=== PATIENT | male | born 1965 ===

== ENCOUNTER 2020-07-19 08:14 | Outpatient (REF) | payer BC, SELFPAY ==
[2020-07-19 11:28] LABS: MANUAL DIFF FLAG NO
[2020-07-19 11:38] LABS: Basophils Percent Auto 0.3 % (0-2); Eosinophils Absolute Auto 0.1 X10*3/uL (0.0-0.4); Eosinophils Percent Auto 0.9 % (0-4); Hematocrit 47.4 % (42-52); Hemoglobin 16.1 g/dl (14.0-18.0); Imm Gran Pct Auto 1.3 % (0.0-0.4); Lymphocytes Absolute Auto 1.6 X10*3/uL (1.2-4.9); Lymphocytes Percent Auto 20.3 % (20-40); Mean Corpuscular Hemoglobin 33.4 pg (27.0-33.0); Mean Corpuscular Volume 98.3 fL (80-98); Mean Platelet Volume 8.7 fL (9.4-12.4); Monocytes Absolute Auto 0.9 X10*3/uL (0.1-1.2); Monocytes Percent Auto 10.6 % (2-11); Neutrophils Absolute Auto 5.3 X10*3/uL (2.0-8.3); Neutrophils Percent Auto 66.6 % (45-73); Platelet Count 362 X10*3/uL (160-400); Red Blood Count 4.82 X10*6/uL (4.60-5.80)
[2020-07-19 12:04] LABS: Alanine Aminotransferase 24 U/L (0-40); Albumin Level 4.6 g/dL (3.5-5.0); Alkaline Phosphatase 89 U/L (39-117); Anion Gap 14 (12-20); Aspartate Amino Transferase 19 U/L (5-37); Bilirubin Total 0.6 mg/dL (0.0-1.0); Blood Urea Nitrogen 19 mg/dL (9-16); Calcium 9.3 mg/dL (8.4-10.2); Carbon Dioxide 26 mmol/L (22-29); Chloride 105 mmol/L (96-108); Cholesterol 184 mg/dL; Estimated Glomerular Filt Rate > 60; Glucose Fasting 78 mg/dL (60-99); HDL Cholesterol 46 mg/dL; LDL Cholesterol Calculated 112 mg/dl; Potassium 4.8 mmol/l (3.3-5.1); Sodium 140 mmol/L (135-145); Total Protein 7.3 g/dL (6.5-8.0); Triglycerides 133 mg/dL
== END 2020-07-19 08:15 | disposition home or self-care (01) ==
LOC: HO.HMGCLDS 08:14
PROVIDERS: PCP Internal Medicine; Visit Provider Internal Medicine
DX: I11.9 Hypertensive heart disease without heart failure (principal); I43 Cardiomyopathy in diseases classified elsewhere
CPT/HCPCS: 36415; 80053; 80061; 84443; 85025

== ENCOUNTER → 2020-08-09 14:44 | Outpatient (BNVA) | payer BC, SELFPAY | PROVIDERS: PCP Internal Medicine; Visit Provider Internal Medicine | DX: I42.8 Other cardiomyopathies (principal); I10 Essential (primary) hypertension; Z79.899 Other long term (current) drug therapy | CPT/HCPCS: 93005 ==

== ENCOUNTER 2020-08-24 09:56 | Outpatient (REF) | payer BC, SELFPAY | END 2020-08-24 09:57 | disposition home or self-care (01) | LOC: HO.LAB 09:56 | PROVIDERS: Visit Provider Internal Medicine | DX: Z20.828 Contact with and (suspected) exposure to other viral communicable diseases (principal) | CPT/HCPCS: C9803; U0003 ==

== ENCOUNTER 2020-10-18 15:17 | Outpatient (REF) | payer BC, SELFPAY ==
--- NOTE | 2020-10-18 15:21 | XR_ITS ---
EXAMINATION: THORACIC AND LUMBAR SPINE X-RAY CLINICAL INFORMATION: Back pain COMPARISON: None TECHNIQUE: 3 views of the thoracic spine and 3 views of the lumbar spine FINDINGS: Thoracic spine: Bone alignment is normal. No fracture or dislocation is seen. Disc spaces are normal. Paraspinal soft tissues are normal. Lumbar spine: Bone alignment is normal. There is degenerative spondylosis and disc space narrowing at L2-L3. There is a horizontal line of increased sclerosis in the superior L3 vertebral body. No loss of height is seen to confirm a compression fracture. Disc spaces are otherwise normal and this may be related to spondylosis. Disc spaces are otherwise normal. There is mild lower lumbar spine facet arthritis. XR/XR thoracic spine 3V IMPRESSION: Thoracic spine: Unremarkable exam. Lumbar spine: Degenerative disc disease and spondylosis at L2-L3. Horizontal line of increased sclerosis in the superior L3 vertebral body without loss of height. This is probably related to degenerative spondylosis. It is difficult to exclude mild compression fracture. This could be further evaluated with CT, MRI or nuclear medicine scan if clinically indicated.
--- NOTE | 2020-10-18 15:21 | XR_ITS ---
EXAMINATION: THORACIC AND LUMBAR SPINE X-RAY CLINICAL INFORMATION: Back pain COMPARISON: None TECHNIQUE: 3 views of the thoracic spine and 3 views of the lumbar spine FINDINGS: Thoracic spine: Bone alignment is normal. No fracture or dislocation is seen. Disc spaces are normal. Paraspinal soft tissues are normal. Lumbar spine: Bone alignment is normal. There is degenerative spondylosis and disc space narrowing at L2-L3. There is a horizontal line of increased sclerosis in the superior L3 vertebral body. No loss of height is seen to confirm a compression fracture. Disc spaces are otherwise normal and this may be related to spondylosis. Disc spaces are otherwise normal. There is mild lower lumbar spine facet arthritis. XR/XR lumbar spine 2-3V IMPRESSION: Thoracic spine: Unremarkable exam. Lumbar spine: Degenerative disc disease and spondylosis at L2-L3. Horizontal line of increased sclerosis in the superior L3 vertebral body without loss of height. This is probably related to degenerative spondylosis. It is difficult to exclude mild compression fracture. This could be further evaluated with CT, MRI or nuclear medicine scan if clinically indicated.
== END 2020-10-18 15:18 | disposition home or self-care (01) ==
LOC: HO.HMGCX 15:17
PROVIDERS: PCP Internal Medicine; Visit Provider Nurse Practitioner Family
DX: M54.5 Low back pain (principal); M54.6 Pain in thoracic spine
CPT/HCPCS: 72072; 72100

== ENCOUNTER 2021-06-13 08:38 | Outpatient (REF) | payer BC, SELFPAY ==
[2021-06-13 12:01] LABS: Free T4 (Free Thyroxine) 0.86 ng/dL (0.71-1.85); Thyroid Stimulating Hormone 0.53 uIU/mL (0.32-4.0)
[2021-06-14 10:52] LABS: Triiodothyronine T3 Free 3.2 pg/mL (2.3-4.2)
[2021-06-17 13:21] LABS: Free Prostate Spec Ag 0.2 ng/mL; Percent Free Prostate Spec Ag 33 % (calc) (>25); Prostate Specific Ag Total 0.6 ng/mL (< OR = 4.0)
== END 2021-06-13 08:39 | disposition home or self-care (01) ==
LOC: HO.HMGCLDS 08:38
PROVIDERS: PCP Internal Medicine; Visit Provider Internal Medicine
DX: Z12.5 Encounter for screening for malignant neoplasm of prostate (principal); E11.9 Type 2 diabetes mellitus without complications; I10 Essential (primary) hypertension
CPT/HCPCS: 36415; 84154; 84439; 84443; 84481

== ENCOUNTER → 2021-07-20 09:16 | Outpatient (REF) | payer BC, SELFPAY ==
--- NOTE | 2021-07-20 09:19 | CA_ITS ---
Transthoracic Echocardiogram Patient (Last, First, Middle): Yan Marte J Gender: Male Date of : 1965 Age: 55 Procedure Date: 07/20/2021 Procedure Type: Transthoracic Echocardiogram Location: OP Height: 182.88 cm Weight: 99.79 kg BSA: 2.22 m2 Heart Rate: bpm BP: 130 / 100 mmHg Price Checker: SAEN Referring MD: Finn Callejas MD Symptoms: I42.8 - Other cardiomyopathies Study Quality: Fair ECG Rhythm: Sinus Conclusions: - The left ventricular systolic function is normal. The calculated ejection fraction is 57% by biplane method. - No obvious valvular pathology seen on this study. Findings Left Ventricle Normal left ventricular cavity size. There is mildly increased left ventricular wall thickness. The left ventricular systolic function is normal. The calculated ejection fraction is 57% by biplane method. There is no evidence of regional wall motion abnormalities. Diastolic function is normal for age. Right Ventricle Normal right ventricular cavity size and systolic function. Atria Both atria are normal in size. Aortic Valve There is a normal trileaflet aortic valve. There is no aortic valve stenosis. There is no aortic valve regurgitation. Mitral Valve The mitral valve appears normal. There is trace mitral valve regurgitation. There is no mitral valve stenosis. Pulmonic Valve The pulmonic valve was not well visualized. Tricuspid Valve Normal tricuspid valve structure. There is no tricuspid valve regurgitation. The pulmonary artery systolic pressure is normal. Great Vessels The aortic arch is normal in size. Top normal ascending aortic size at 3.8cm. Venous The inferior vena cava is normal in size and collapses greater than 50% with inspiration. Pericardium/Pleural There is no evidence of pericardial effusion. Prior Study Comparison No significant change compared to prior study dated: 07/10/2019. Recommendations, Care & Conclusions No obvious valvular pathology seen on this study. Measurements 2D Linear Measurements IVSd: 1.13 0.6-0.9/0.6-1.0 cm LVIDd: 4.94 3.9-5.3/4.2-5.9 cm LVIDd Index: 2.23 2.4-3.2/2.2-3.1 cm/m2 LVIDs: 3.19 2.0-3.6 cm LVPWd: 1.15 0.7-1.1 cm Ao Root: 4.00 2.1-3.5 cm LA Diam: 3.50 2.7-3.8/3.0-4.0 cm LAIDs Index: 1.58 1.5-2.3 cm/m2 LV Mass: 266.05 67-162/88-224 g LV Mass Index: 119.84 43-95/49-115 g/m2 LVOT Diam: 2.40 3.0+(-)1.3 cm 2D Systolic Function EF 4C: 58.30 >55% EF 2C: 55.00 >55% EF BiP: 56.50 >55% Mitral Valve MV Pk E: 0.55 MV PK A: 0.95 MV Decel Time: 165.00 E/A: 0.60 E'Lateral: 7.29 E'Medial: 5.44 E/E' Med: 10.20 E/E' Lat: 7.60 PHT: 48.00 MVA PHT: 4.58 Decel [place]: 3.35 Aortic Valve AoV Pk Mehran: 1.12 AoV Mn Mehran: 0.86 AoV VTI: 0.21 AoV Pk Grad: 5.00 Aov Mn Grad: 3.00 VAUGHN Cont.VTI: 3.15 LVOT LVOT Pk Mehran: 0.78 LVOT Mn Mehran: 0.56 LVOT VTI: 0.15 LVOT Pk Grad: 2.00 LVOT Mn Grad: 1.00 LVOT Diam: 2.40 LVOT Area: 4.52 Diastolic Function MV Pk E: 0.55 MV Pk A: 0.95 E/A: 0.60 E'Medial: 5.44 E/E' Med: 10.20 E' Laterial: 7.29 E/E' Lat: 7.60 Right Ventricle TAPSE (mm): 2.17 TVS' Mehran: 13.20 Tricuspid Valve TR Pk Mehran: 1.38 TR Pk Grad: 8.00 RA Press: 3.00 RVSP: 11.00 Great Vessels Aorta Ao Root-2D: 4.00 2.0-3.7 cm Ao Asc: 3.80 2.1-3.4 cm Ao Arch: 2.80 Updated in Other Vendor System with Status of Final Finn Callejas MD electronically signed on 07/20/2021 4:25:48 PM with status of Final
== END ==
LOC: HO.CARD 09:16
PROVIDERS: Visit Provider Internal Medicine
DX: I42.8 Other cardiomyopathies (principal)
CPT/HCPCS: 93306

== ENCOUNTER → 2021-08-10 12:42 | Outpatient (BNVA) | payer BC, SELFPAY | PROVIDERS: PCP Internal Medicine; Referring Provider Internal Medicine; Visit Provider Internal Medicine | DX: I42.8 Other cardiomyopathies (principal); I10 Essential (primary) hypertension | CPT/HCPCS: 93005 ==

== ENCOUNTER 2022-06-14 07:20 | Day surgery (SDC) | payer BC, SELFPAY ==
[2022-06-08 10:54] VITALS: BMI 29.3
--- NOTE | 2022-06-13 10:29 | HO.ANESPROP2 ---
HPI - Anesthesia Eval Consult details Narrative: 56yo M for Colonoscopy Per 07/2021 cardiac office visit, mild cardiomyopathy likely r/t htn. Yearly follow ups. [facility]MERLY [facility], 1928–1983 Active Problems Active Problems: All Active Problems (Updated 10/29/20 @ 12:38 by Bernardino Man MD) Epistaxis (Acute) Back pain (Acute) Essential hypertension (Acute) Nonischemic cardiomyopathy (Acute) Past Medical History Medical History (Updated 10/29/20 @ 12:38 by Bernardino Man MD) Essential hypertension Nonischemic cardiomyopathy Family History Family History Father Hypertension Mother Hypertension Surgical History Surgical History No pertinent past surgical history Social History Social History Patient Tobacco Use Status: Never used Tobacco Use of substances other than those prescribed or required for medical reasons: No Are you DNR?: No Advance Directives: No Advance Directives Information Provided: Yes Meds Allergies Allergy/AdvReac Type Severity Reaction Status Date / Time No Known Allergies Allergy Verified 08/10/21 13:05 [No Known Allergies*] Home Medications Medication Instructions Recorded Confirmed Last Taken Type metoprolol succinate 100 mg 100 mg PO DAILY 08/09/20 08/10/21 06/14/22 History tablet,extended release 24 hr Exam Exam Date and Time: June 13, 2022 1029 Height,Weight and Vital Signs: Height 5 ft 11.75 in Weight 97.522 kg Narrative Narrative: ECHO 07/2021 Conclusions: - The left ventricular systolic function is normal.? The ? calculated ejection fraction is 57% by biplane method. ? - No obvious valvular pathology seen on this study.? Findings Left Ventricle Normal left ventricular cavity size.? There is mildly increased left ventricular wall thickness.? The left ventricular systolic function is normal.? The calculated ejection fraction is 57% by biplane method.? There is no evidence of regional wall motion abnormalities.? Diastolic function is normal for age. EKG 07/2021 sinus rhythm 82/Min; leftward axis; left ventricular hypertrophy; normal MD/QTc; similar to prior. Assessment and Plan Assessment Anesthesia Assessment: Chart Reviewed
[2022-06-14 07:53] VITALS: BMI 29.3
--- NOTE | 2022-06-14 08:00 | HO.ANESPROP2 ---
[facility] Active Problems Active Problems: All Active Problems (Updated 10/29/20 @ 12:38 by Bernardino Man MD) Epistaxis (Acute) Back pain (Acute) Essential hypertension (Acute) Nonischemic cardiomyopathy (Acute) Past Medical History Medical History (Updated 10/29/20 @ 12:38 by Bernardino Man MD) Essential hypertension Nonischemic cardiomyopathy Family History Family History Father Hypertension Mother Hypertension Family history of problems with anesthesia: No Surgical History Surgical History No pertinent past surgical history History of Problems with Anesthesia: No Social History Social History Patient Tobacco Use Status: Never used Tobacco Advance Directives: No Advance Directives Information Provided: Yes Meds Allergies Allergy/AdvReac Type Severity Reaction Status Date / Time No Known Allergies Allergy Verified 08/10/21 13:05 [No Known Allergies*] Active Medications: Current Medications Lactated Ringer's (Lr) 1,000 mls @ 100 mls/hr IVCONT .Q10H KOFI Sodium Biphosphate/Sodium Phosphate (Sodium Phosphate,[place]-Dibasic 133 Ml Enema) 133 ml [place] ONCE PRN PRN Reason: Poor Colonoscopy Prep Results Home Medications Medication Instructions Recorded Confirmed Last Taken Type metoprolol succinate 100 mg 100 mg PO DAILY 08/09/20 08/10/21 06/14/22 History tablet,extended release 24 hr Exam Exam Date and Time: June 14, 2022 0800 Height,Weight and Vital Signs: Height 5 ft 11.75 in Weight 97.522 kg Airway Mallampati Class: II TM Dist: >3cm Neck ROM: Full Assessment and Plan Assessment Anesthesia Assessment: Anesthesia Plan Discussed and Chart Reviewed Final Anesthetic Review Family History of Problems with Anesthesia: No History of Problems with Anesthesia: No NPO: Yes ASA Class: II Final Preanesthetic Review: No Changes in Pt Med Stat, Meds/Allgs Chart Reviewed, Consent Obtained/Reviewed and Anes Risks/Benef Reviewed Patient Risk: Low Procedure Risk: Low Anesthetic Plan Anesthetic Plan: MAC: Disposition: Standard PACU
[2022-06-14 08:01] VITALS: BP 152/103; PULSE 108; RESP 16; TEMP 36.6; O2SAT 96
[2022-06-14] MEDS: Lactated Ringers 1,000 ML 100 ML IVCONT (08:13)
[2022-06-14 09:50] VITALS: BP 102/74; PULSE 81; RESP 16; TEMP 36.2; O2SAT 92
--- NOTE | 2022-06-14 09:59 | P.BOP_ITS ---
Brief Operative Note Date of Service: 06/14/22 Pre-op diagnosis: Screening Post-op diagnosis: other (Polyp) Procedure: Colonoscopy to the cecum and TI with cold snare polypectomy Surgeon: Yan Monique Anesthesia: MAC Was an Rubber Tile Floor Layer used for this Procedure?: No Estimated blood loss (mL): 2.0 Pathology: other (A. Transverse colon polyp) Condition: stable Disposition: PACU
[2022-06-14 10:07] VITALS: BP 115/80; PULSE 81; RESP 16; TEMP 36.2; O2SAT 96
--- NOTE | 2022-06-14 11:40 | OP_ITS ---
SURGEON: Yan Monique MD INDICATIONS: The patient presents for evaluation of personal history of colon polyps and colorectal cancer screening. Full consent has been obtained from him for the procedure, including risks of bleeding and perforation. PREOPERATIVE DIAGNOSIS: POSTOPERATIVE DIAGNOSIS: PROCEDURE PERFORMED: Colonoscopy to the cecum and terminal ileum with cold snare polypectomy. ESTIMATED BLOOD LOSS: COMPLICATIONS: ANESTHESIA: Monitored anesthesia care. ASSISTANTS: SPECIMENS: PREOPERATIVE DIAGNOSES: Personal history of tubular adenomas and serrated colon polyps, colorectal cancer screening. POSTOPERATIVE DIAGNOSES: Personal history of tubular adenomas and serrated colon polyps, colorectal cancer screening, colon polyp, diverticulosis, large hemorrhoids. DESCRIPTION OF PROCEDURE: The patient was placed in the left lateral decubitus position. The digital rectal exam revealed very swollen hemorrhoidal tissue that actually was able to all be pushed back into the rectum leaving no sign of any perianal disease. These appeared to be prolapsing internal hemorrhoidal tissue. The Olympus video pediatric colonoscope was entered into the rectum and advanced to the cecum with the assistance of abdominal wall pressure. Advancement to the cecum was difficult. However, once in the cecum, I did identify a normal-appearing cecal pouch with appendiceal orifice and a normal-appearing ileocecal valve. The terminal ileum was cannulated and appeared normal. The scope was withdrawn back in the colon. The entire cecum was well visualized and appeared normal without any sign of mass or ulceration. The scope was then slowly withdrawn assessing all mucosal surfaces carefully. Preparation was excellent. In the transverse colon was an approximately 5 or 6 mm polyp, which was removed by cold snare polypectomy completely and recovered by suction. The polypectomy site appeared clean, without any sign of residual polyp nor significant bleeding. I did not visualize any other polyps, colitis, or angiodysplasia. There was a mild amount of sigmoid diverticulosis. In the rectum, the scope was retroflexed visualizing prominent and friable internal hemorrhoids, but no other pathology. The rectal mucosa appeared normal. The scope was straightened and withdrawn from the patient. He tolerated the procedure well and was returned to the recovery area in stable condition. IMPRESSION: 1. Small colon polyp. 2. Diverticulosis. 3. Internal hemorrhoids. PLAN: The results of the pathology will be checked. Given his previous history, I would recommend a repeat colonoscopy in 3 years. He was advised not to use any aspirin or NSAIDs for 1 week. He was advised to maintain a good bowel regimen and avoid constipation in regard to the significant hemorrhoids. He was advised to see Dr. Ndiaye or whichever colorectal surgeon he and his PCP prefer if the hemorrhoids are problematic. He would need to obtain a referral from his primary care provider in regard to the prominent hemorrhoidal tissue and need for a surgery referral as well. He has been given written instructions in the regard. This has all been discussed with his as well. MD CHINA Pressley/KAIT / [id number] MTDD
== END 2022-06-14 10:24 | disposition home or self-care (01) ==
PROVIDERS: PCP Nurse Practitioner Family; Visit Provider Internal Medicine
PROC: 0DJD8ZZ Inspection of Lower Intestinal Tract, Via Natural or Artificial Opening Endoscopic (ICD-10-PCS; CPT 45378; principal; 2022-06-14 08:30)
DX: Z12.11 Encounter for screening for malignant neoplasm of colon (principal); Z86.010 Personal history of colon polyps; D12.3 Benign neoplasm of transverse colon; K57.30 Diverticulosis of large intestine without perforation or abscess without bleeding; K64.8 Other hemorrhoids; I10 Essential (primary) hypertension; Z79.899 Other long term (current) drug therapy
CPT/HCPCS: 45385; 88305

== ENCOUNTER → 2022-07-18 08:52 | Outpatient (BNVA) | payer BC, SELFPAY | PROVIDERS: PCP Nurse Practitioner Family; Visit Provider Internal Medicine | DX: I42.8 Other cardiomyopathies (principal); I10 Essential (primary) hypertension | CPT/HCPCS: 93005 ==

== ENCOUNTER 2023-07-24 09:01 | Outpatient (AMB) | payer BC, SELFPAY ==
--- NOTE | 2023-07-24 09:15 | MHC.OFFVIS ---
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 History of mild nonischemic cardiomyopathy related to hypertension. Overall, doing good. No complaints from cardiac standpoint. 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 [facility] Medical History (Updated 10/29/20 @ 12:38 by Bernardino Man MD) Essential hypertension Nonischemic cardiomyopathy Surgical History No pertinent past surgical history Family History Father Hypertension Mother Hypertension Social History Alcohol intake: current Alcohol intake frequency: a few times a month Alcohol type: beer Patient Tobacco Use Status: Never used Tobacco Review of Systems Const Denies weakness ENT Denies dizziness Card Denies chest pain, Denies chest pain with activity, Denies syncope, Denies rapid heart rate, Denies pedal edema, Denies edema, Denies leg edema, Denies lightheadedness, Denies palpitations, Denies dyspnea, Denies dyspnea on exertion and Denies orthopnea Resp Denies cough, Denies dyspnea and Denies dyspnea on exertion GI Denies hematochezia and Denies change in stool character Musc Denies abnormal gait, Denies muscle cramps, Denies muscle weakness, Denies numbness, Denies radiating pain into limb and Denies tingling Neuro Denies abnormal gait, Denies dizziness, Denies syncope, Denies numbness, Denies tingling and Denies weakness Endo Denies palpitations Physical Exam Vital Signs: Last Vital Signs Pulse 73 07/24/23 09:16 BP 132/92 H 10/10/23 09:16 BMI result Body Mass Index 30.4 Const General: comfortable and no acute distress Orientation/consciousness: patient oriented x3 HEENT Other: Unremarkable Head: Yes normal to inspection Neck Neck: Yes normal visual inspection Chest Chest palpation & inspection: normal inspection of the chest Resp Auscultation: clear to auscultation bilaterally Cardio Palpation: normal PMI Heart sounds: S1 normal heart sound present, S2 normal heart sound present, no gallops, no murmurs and no rubs GI Palpation (GI): Soft to palpation Back/Spine/Pelvis Other: unremarkable Skin General skin exam: no rashes or lesions noted Neuro General: patient oriented x3 Extrem General: Yes normal to inspection Psych Mental Status: mental status grossly normal Office Procedures EKG Details: EKG with sinus rhythm at 73/Min; left anterior fascicular block; nonspecific ST[place] [id number], Complete Assessment & Plan Assessment & Plan (1) Essential hypertension: Code(s): I10 - Essential (primary) hypertension (2) Nonischemic cardiomyopathy: Code(s): I42.8 - Other cardiomyopathies Plan LVEF on a prior echocardiogram was 40-50% but the last study shows LVEF 57%. Stress MIBI in the past was unremarkable. Blood pressure is okay but diastolics are on the higher side including at home. He states home diastolics are somewhere in the 80s. Med regimen includes metoprolol and lisinopril. Due to longstanding hypertension history, we will get a coronary CTA to screen for any significant CAD. Discussed about this with patient he is agreeable. Will schedule the same. Patient will call us with ongoing concerns. Total time spent including review of data, counseling, documentation, coordination care-31 minutes. Orders: Orders CT Cardiac Coronary Angio Today I25.10 - Atherosclerotic heart disease of [place] coronary artery without angina pectoris Basic Metabolic Panel Today I10 - Essential (primary) hypertension Coding Level of Care Code Est Pt Level 4 (43904) Diagnoses Essential hypertension I10 Nonischemic cardiomyopathy I42.8 CPT Codes EKG - CPT: 41486-[id number], Complete ([id number])
[2023-07-24 09:16] VITALS: BP 132/92; PULSE 73; BMI 30.4
== END 2023-07-24 09:41 | disposition home or self-care (01) ==
PROVIDERS: PCP Nurse Practitioner Family; Visit Provider Internal Medicine
DX: I10 Essential (primary) hypertension (principal); I42.8 Other cardiomyopathies
CPT/HCPCS: 93010; 99214

== ENCOUNTER → 2023-07-24 09:01 | Outpatient (BNVA) | payer BC, SELFPAY | PROVIDERS: PCP Nurse Practitioner Family; Visit Provider Internal Medicine | DX: I10 Essential (primary) hypertension (principal); I42.8 Other cardiomyopathies | CPT/HCPCS: 93005 ==

== ENCOUNTER 2023-09-25 09:37 | Outpatient (REF) | payer BC, SELFPAY ==
[2023-09-25 12:09] LABS: Anion Gap 12 (12-20); Blood Urea Nitrogen 16 mg/dL (9-16); Calcium 9.5 mg/dL (8.4-10.2); Carbon Dioxide 27 mmol/L (22-29); Chloride 106 mmol/L (96-108); Estimated Glomerular Filt Rate > 60; Glucose Random 79 mg/dL (60-115); Sodium 141 mmol/L (135-145)
== END 2023-09-25 09:38 | disposition home or self-care (01) ==
LOC: HO.HMGCLDS 09:37
PROVIDERS: PCP Nurse Practitioner Family; Visit Provider Internal Medicine
DX: I10 Essential (primary) hypertension (principal)
CPT/HCPCS: 36415; 80048

== ENCOUNTER 2023-10-24 13:44 | Outpatient (AMB) | payer BC, SELFPAY ==
[2023-10-24 14:01] VITALS: BP 142/92; PULSE 102; BMI 30.7
--- NOTE | 2023-10-24 14:01 | A.OFFVIS_ITS ---
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 History of mild nonischemic cardiomyopathy related to hypertension. Overall, doing good. No complaints from cardiac standpoint. He recently underwent coronary CTA. Here to discuss results. [facility] Medical History (Updated 10/24/23 @ 14:53 by Finn Callejas MD) Atherosclerotic cardiovascular disease Essential hypertension Nonischemic cardiomyopathy Surgical History No pertinent past surgical history Family History Father Hypertension Mother Hypertension Social History Alcohol intake: current Alcohol intake frequency: a few times a month Alcohol type: beer Patient Tobacco Use Status: Never used Tobacco Review of Systems Const Denies weakness ENT Denies dizziness Card Denies chest pain, Denies chest pain with activity, Denies syncope, Denies rapid heart rate, Denies pedal edema, Denies edema, Denies leg edema, Denies lightheadedness, Denies palpitations, Denies dyspnea, Denies dyspnea on exertion and Denies orthopnea Resp Denies cough, Denies dyspnea and Denies dyspnea on exertion GI Denies hematochezia and Denies change in stool character Musc Denies abnormal gait, Denies muscle cramps, Denies muscle weakness, Denies numbness, Denies radiating pain into limb and Denies tingling Neuro Denies abnormal gait, Denies dizziness, Denies syncope, Denies numbness, Denies tingling and Denies weakness Endo Denies palpitations Physical Exam Vital Signs: Last Vital Signs Pulse 102 H 10/24/23 14:01 BP 142/92 H 10/24/23 14:01 BMI result Body Mass Index 30.7 Const General: comfortable and no acute distress Orientation/consciousness: patient oriented x3 HEENT Other: Unremarkable Head: Yes normal to inspection Neck Neck: Yes normal visual inspection Chest Chest palpation & inspection: normal inspection of the chest Resp Auscultation: clear to auscultation bilaterally Cardio Palpation: normal PMI Heart sounds: S1 normal heart sound present, S2 normal heart sound present, no gallops, no murmurs and no rubs GI Palpation (GI): Soft to palpation Back/Spine/Pelvis Other: unremarkable Skin General skin exam: no rashes or lesions noted Neuro General: patient oriented x3 Extrem General: Yes normal to inspection Psych Mental Status: mental status grossly normal Assessment & Plan Assessment & Plan (1) Atherosclerotic cardiovascular disease: Code(s): I25.10 - Atherosclerotic heart disease of [place] coronary artery without angina pectoris (2) Essential hypertension: Code(s): I10 - Essential (primary) hypertension (3) Nonischemic cardiomyopathy: Code(s): I42.8 - Other cardiomyopathies Plan LVEF on a prior echocardiogram was 40-50% but the last study shows LVEF 57%. Stress MIBI in the past was unremarkable. Coronary CTA shows mild disease of overall. Nothing obstructive. Ostial left main-30%. Mid LAD-25%. This LAD-40%. Distal RCA 40%. Nothing significant on FFR. Borderline ascending aortic size at 3.8 cm. Findings discussed with patient and significant other. Overall, aggressive risk factor modification. Blood pressure seems doing higher side today. Some high and some normal numbers. Advised to do home readings and contact us. With regard to lipids, we can start him on statins. Follow-up lipids in a few weeks time. All questions answered to their satisfaction. Total time spent including review of data, counseling, documentation, coordination of care-32 minutes. Orders: Orders Liver Panel 6 Weeks I25.10 - Atherosclerotic heart disease of [place] coronary artery without angina pectoris Lipid Panel 6 Weeks E78.5 - Hyperlipidemia, unspecified LDL Cholesterol Direct 6 Weeks E78.2 - Mixed hyperlipidemia Medications: New atorvastatin 40 mg PO QPM 90 tabs 3RF Coding Level of Care Code Est Pt Level 4 (45729) Diagnoses Atherosclerotic cardiovascular disease I25.10 Essential hypertension I10 Nonischemic cardiomyopathy I42.8
== END 2023-10-24 14:20 | disposition home or self-care (01) ==
PROVIDERS: PCP Nurse Practitioner Family; Visit Provider Internal Medicine
DX: I25.10 Atherosclerotic heart disease of native coronary artery without angina pectoris (principal); I10 Essential (primary) hypertension; I42.8 Other cardiomyopathies
CPT/HCPCS: 99214

== ENCOUNTER → 2023-10-24 13:44 | Outpatient (BNVA) | payer BC, SELFPAY | PROVIDERS: PCP Nurse Practitioner Family; Visit Provider Internal Medicine ==

== ENCOUNTER 2023-11-13 09:03 | Outpatient (REF) | payer BC, SELFPAY ==
[2023-11-13 10:54] LABS: Alanine Aminotransferase 21 U/L (0-40); Albumin Level 4.3 g/dL (3.5-5.0); Alkaline Phosphatase 103 U/L (39-117); Aspartate Amino Transferase 18 U/L (5-37); Bilirubin Direct 0.2 mg/dL (0.0-0.5); Bilirubin Total 0.7 mg/dL (0.0-1.0); Cholesterol 169 mg/dL (<200); HDL Cholesterol 45 mg/dL (>40); LDL Cholesterol Calculated 106 mg/dL (<100); Total Protein 7.4 g/dL (6.5-8.0); Triglycerides 93 mg/dL (<150)
[2023-11-14 23:54] LABS: LDL Cholesterol Direct 120 mg/dL (<100)
== END 2023-11-13 09:04 | disposition home or self-care (01) ==
LOC: HO.HMGCLDS 09:03
PROVIDERS: PCP Nurse Practitioner Family; Visit Provider Internal Medicine
DX: I25.10 Atherosclerotic heart disease of native coronary artery without angina pectoris (principal); E78.5 Hyperlipidemia, unspecified; E78.2 Mixed hyperlipidemia
CPT/HCPCS: 36415; 80061; 80076; 83721

== ENCOUNTER 2024-06-02 12:59 | Outpatient (AMB) | payer BC, SELFPAY ==
--- NOTE | 2024-06-02 13:03 | AM.OFFWIN_ITS ---
Intake Vital Signs 06/02/24 13:04 Height 5 ft 11 in Weight 199 lb BMI 27.8 BP 116/76 Blood Pressure Location Rt brachial Position Sitting Pulse 104 H Pulse Source Pulse Oximeter Temp 99.3 F Temp Source Oral Pulse Oximetry (%) 98 Oxygen Delivery Method Room Air Intake Visit Reasons: EP- LT thumb pain, infection? Intake Note: pt c/o LT thumb pain and swelling. ? infection. Started last Patient Tobacco Use Status: Never used Tobacco Allergies No Known Allergies [No Known Allergies*] Allergy (Verified 06/02/24 13:03) Do you need a note to return to daycare/school/sports/work: No HPI HPI Comments History of Present Illness Details Patient is a 58-year-old male complaining of left thumb pain x4 days. Red around the edge of the left thumbnail, he states it is very tender and swollen and he thinks it is infected. The area is very tender and he noticed an area which was white in color at the base of the nail into the skin which developed this morning. COUNTS INCLUDE 234 BEDS AT THE [facility] Medical History (Updated 06/02/24 @ 13:45 by Poonam Evans PA-C) Atherosclerotic cardiovascular disease Essential hypertension Nonischemic cardiomyopathy Surgical History No pertinent past surgical history Family History Father Hypertension Mother Hypertension Social History Alcohol intake: current Alcohol intake frequency: a few times a month Alcohol type: beer Patient Tobacco Use Status: Never used Tobacco Review of Systems Const All systems reviewed & are unremarkable except as noted in HPI and below Physical Exam Vital Signs: Last Vital Signs Temp 99.3 F 06/02/24 13:04 Pulse 104 H 06/02/24 13:04 BP 116/76 06/02/24 13:04 Pulse Ox 98 06/02/24 13:04 Oxygen Delivery Method Room Air 06/02/24 13:04 BMI result Body Mass Index 27.8 Const General: cooperative, healthy appearing, comfortable and no acute distress Orientation/consciousness: patient oriented x3 Limitations: no limitations Resp Effort & Inspection: normal respiratory effort and able to speak in complete sentences Skin Other: Left thumbnail has area of erythema and tenderness with the area of white bump at the base of the left thumb. Neuro General: patient oriented x3 Office Procedures I&D Drain Details: Had patient soak left thumb in warm water, applied Betadine and with 11. Scalpel, made incision to allow for purulent drainage, 2 mL purulence plus scant blood. Applied gauze and bandage on area. [id number] Drain Abscess on Finger, simple All charges added?: Procedure code (CPT) selection complete Assessment & Plan Assessment & Plan (1) Paronychia of finger: Code(s): L03.019 - Cellulitis of unspecified finger Qualifiers: Laterality: left Qualified Code(s): L03.012 - Cellulitis of left finger Plan: Able to perform incision and drainage and drain some purulent fluid, however I suspect they are still some infection in there so I will prescribe a few days of Keflex. Instructed patient not to vegetable picker the Keflex unless the thumb is looking worse tomorrow. Patient understands and agrees with plan Plan See above Medications: New cephalexin 500 mg PO Q8H 10 caps 0RF Coding Level of Care Code New Pt Level 3 (15196) Diagnoses Paronychia of finger of left hand L03.012 Laterality: left CPT Codes I&D Drain - DRAIN 8: [id number] Drain Abscess on Finger, simple ([id number])
[2024-06-02 13:04] VITALS: BP 116/76; PULSE 104; TEMP 37.4; O2SAT 98; BMI 27.8
== END 2024-06-02 14:00 | disposition home or self-care (01) ==
PROVIDERS: PCP Nurse Practitioner Family; Visit Provider Physician Assistant
DX: L03.012 Cellulitis of left finger (principal)
CPT/HCPCS: 26010; 99203

== ENCOUNTER 2024-06-18 08:24 | Outpatient (REF) | payer BC, SELFPAY ==
--- NOTE | ~2024-06-18 | XR_ITS ---
EXAMINATION: XR HIP, LEFT CLINICAL INFORMATION: Left hip pain. COMPARISON: None available. TECHNIQUE: Two views of the left hip. FINDINGS: Mild left hip joint space narrowing with small marginal osteophytes. Bhav-ql-gctlzkgo right hip joint space narrowing with subchondral sclerosis and marginal osteophytes. No acute fracture or dislocation. No concerning lytic or blastic osseous lesion. Phleboliths within the pelvis. XR/XR hip LT min 2V IMPRESSION: Opyj-iw-ecrknlqt right and mild left hip osteoarthritis. Electronically signed by: Benny Inman MD 06/23/2024 10:23 PM EDT
--- NOTE | ~2024-06-18 | XR_ITS ---
EXAMINATION: XR KNEE, LEFT CLINICAL INFORMATION: Left knee pain. COMPARISON: None available. TECHNIQUE: Three views of the left knee. FINDINGS: Mild medial compartment joint space narrowing. No acute fracture or dislocation. No concerning lytic or blastic osseous lesion. Moderate joint effusion. No abnormal soft tissue calcification. XR/XR knee LT 3V IMPRESSION: Mild medial compartment arthrosis. Moderate joint effusion. Electronically signed by: Benny Inman MD 06/23/2024 10:22 PM EDT
== END 2024-06-18 08:25 | disposition home or self-care (01) ==
LOC: HO.HOSX 08:24
PROVIDERS: PCP Nurse Practitioner Family; Visit Provider Orthopaedic Surgery
DX: M16.0 Bilateral primary osteoarthritis of hip (principal); M17.12 Unilateral primary osteoarthritis, left knee; M25.462 Effusion, left knee
CPT/HCPCS: 73502; 73562

== ENCOUNTER 2024-06-18 08:54 | Outpatient (AMB) | payer BC, SELFPAY ==
[2024-06-18 09:00] VITALS: BMI 27.6
--- NOTE | 2024-06-18 09:00 | MHC.OFFVIS ---
Vital Signs 06/18/24 09:00 Height 5 ft 11 in Weight 198 lb BMI 27.6 Intake Visit Reasons: Left hip pain, Left knee pain Intake Note: Mr. Marte is a 58-year-old male who presents with complaints of pain along the anterior aspect of his left hip and groin. The patient states that he may have aggravated his left leg several months ago while working out at the gym. He has recently retired. The patient has not been to the gym recently because of his left leg pain. He denies any numbness or tingling in either of his legs. He has not taken any medicines for his discomfort. Allergies No Known Allergies [No Known Allergies*] Allergy (Verified 06/18/24 09:06) Medication List - Last Reconciled 06/18/24 by Nicolas Reyes MD cephalexin 500 mg PO Q8H lisinopril 10 mg PO DAILY metoprolol succinate ER 100 mg PO DAILY PFSH Medical History (Updated 06/11/24 @ 17:58 by Nicolas Reyes MD) Atherosclerotic cardiovascular disease Essential hypertension Nonischemic cardiomyopathy Surgical History No pertinent past surgical history Family History Father Hypertension Mother Hypertension Social History Alcohol intake: current Alcohol intake frequency: a few times a month Alcohol type: beer Patient Tobacco Use Status: Never used Tobacco Physical Exam Vital Signs: BMI result Body Mass Index 27.6 Const Other: Well-nourished well-developed very friendly male awake alert and oriented x3 in no acute distress Extrem Other: Bilateral lower extremity examination shows good capillary refill, no skin lesions noted, normal sensation light touch Left hip examination shows full range of motion when compared to his right hip, minimal discomfort with range of motion, no tenderness over his bursa Left knee examination shows a minimal effusion, tenderness along his medial joint line, minimal crepitus with range of motion, positive Christophe's test Results Reviewed Results Reviewed: X-rays of the patient's left hip and left knee show mild diffuse joint space narrowing, no acute bony abnormalities Assessment & Plan Assessment & Plan (1) Left knee pain: Code(s): M25.562 - Pain in left knee Category: Medical (2) Left hip pain: Code(s): M25.552 - Pain in left hip Category: Medical Plan Mr. Marte presents with left hip pain and left knee pain most likely due to muscle strain. I had a lengthy discussion with the patient regarding the treatment options. I did give him a prescription for a Medrol Dosepak as well as a prescription to go to formal physical therapy. Will contact me prior to his follow-up appointment in 6-8 weeks should his symptoms worsen in any way. Feel free to call me at any time should questions regarding his orthopedic management arise. I spent 20 minutes in reviewing the patient's records and imaging studies, seeing the patient and documenting in the medical record. Orders: Orders XR hip LT min 2V Today M25.552 - Pain in left hip XR knee LT 3V Today M25.562 - Pain in left knee PT Evaluation and Treatment Today M25.552 - Pain in left hip, M25.562 - Pain in left knee Medications: New methylprednisolone (Medrol (Oswaldo)) PO PER PKG DIR 21 ea 0RF Coding Level of Care Code New Pt Level 3 (11631) Complex EM visit Add On G2211 Diagnoses Left knee pain M25.562 Left hip pain M25.552
== END 2024-06-18 09:31 | disposition home or self-care (01) ==
PROVIDERS: PCP Nurse Practitioner Family; Visit Provider Orthopaedic Surgery
DX: M25.562 Pain in left knee (principal); M25.552 Pain in left hip
CPT/HCPCS: 99203

== ENCOUNTER 2024-07-29 09:00 | Outpatient (RCR) | payer BC, SELFPAY ==
--- NOTE | 2024-07-14 10:43 | MHC.PT.EP ---
[facility] [place] Office [place] Office [place] Office [address] Gretchen Stoddard [address] [phone] F: [phone] F: [phone] F: [phone] F: [phone] Physical Therapy Plan of Care Date of Evaluation: 07/14/24 Date of Surgery: n/a Diagnosis: pain in L knee and hip Assessment: Patient is a 58 year old male presenting to PT with complaints of pain in his L knee and hip. Pt reports onset of pain began over the summer due to insidious onset. He presents today with impairments in pain, hip strength, soft tissue restriction. Pt's current occupation is retired, with baseline physical activities including ambulating, stair negotiation, ADLs, yardwork. 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 Clinical presentation today is most consistent with signs and sx associated with L hip and knee pain and pt will benefit from skilled PT 2 week x 4 weeks to address the following problems and impairments noted upon evaluation: pain, hip strength, soft tissue restriction. These problems limit the patient with the following functional activities: ambulating, stair negotiation, ADLs, yardwork. The prescribed treatment plan of care is medically necessary. Co-morbidities of none were identified and taken into considerations of plan of care. Pt was educated on HEP, role of PT, prognosis, POC. Frequency and Duration: The patient will be seen 2 x week x 4 weeks Short Term Goals: Pt will demonstrate improved hip MMT strength by 1/3 grade in 2 weeks for improved lumbopelvic stability. Pt will report less incidence of sharp pain in the groin in 2 weeks. Pt will demonstrate improved quad length B in 2 weeks. Software Developer Manager Goals: Pt will demonstrate improved LEFI score by 9 points in 4 weeks for improved functional mobility. Pt will demonstrate ability to ambulate with min to no pain for improved ability to complete yardwork in 4 weeks. Pt will demonstrate ability to negotiate stairs with min to no pain in 4 weeks for return to PLOF. Treatment Plan: Modalities to reduce pain, spasms and effusion. Manual therapy to restore motion and function. Therapeutic exercise to improve strength and flexibility. Neuromuscular re-education for posture and balance. Therapeutic activities to return to functional activities of daily living. Electronically signed by: Bijal Le, PT, DPT, ATC Please sign and return to therapist. Thank you for your referral.
--- NOTE | 2024-09-03 08:36 | MHC.PT.DC ---
[facility] [place] [facility] [place] [facility] [place] Office [address] Gretchen Stoddard [address] [phone] F: [phone] F: [phone] F: [phone] F: [phone] Physical Therapy Discharge Report Diagnosis: pain in L knee and hip Date of Surgery: n/a Date of Evaluation: 07/14/24 Date of Discharge: 09/03/24 Treatments to Date: 5 Cancellations to Date: No Shows to Date: Discharge Status: Discharge Summary: Pt has not returned to skilled PT in >30 days and therefore to be d/c per plan at last visit. Electronically signed by: Bijal Le, PT, DPT, ATC Please sign and return to therapist. Thank you for your referral.
== END 2024-09-03 08:37 | disposition home or self-care (01) ==
LOC: HO.PTCHIC 09:00
PROVIDERS: PCP Nurse Practitioner Family; Visit Provider Orthopaedic Surgery
DX: M25.562 Pain in left knee (principal); M25.552 Pain in left hip
CPT/HCPCS: 97110; 97161

== ENCOUNTER 2024-07-30 08:30 | Outpatient (AMB) | payer BC, SELFPAY ==
--- NOTE | 2024-07-30 08:33 | MHC.OFFVIS ---
Intake Visit Reasons: Left hip discomfort Intake Note: Yan is a 58 year male who presents with complaints of mild intermittent discomfort in his left hip and left knee. The patient has completed formal physical therapy as of yesterday. He is planning on returning to working out at [employer]. He continues with his home exercise program as well. He states that his symptoms have improved significantly since his last visit. Allergies No Known Allergies [No Known Allergies*] Allergy (Verified 07/30/24 08:39) Medication List - Last Reconciled 07/30/24 by Nicolas Reyes MD cephalexin 500 mg PO Q8H lisinopril 10 mg PO DAILY methylprednisolone (Medrol (Oswalod)) PO PER PKG DIR metoprolol succinate ER 100 mg PO DAILY PFSH Medical History (Updated 06/11/24 @ 17:58 by Nicolas Reyes MD) Atherosclerotic cardiovascular disease Essential hypertension Nonischemic cardiomyopathy Surgical History No pertinent past surgical history Family History Father Hypertension Mother Hypertension Social History Alcohol intake: current Alcohol intake frequency: a few times a month Alcohol type: beer Patient Tobacco Use Status: Never used Tobacco Physical Exam Const Other: Well-nourished well-developed very friendly male awake alert and oriented x3 in no acute distress Extrem Other: Left hip examination shows mild discomfort with range of motion Assessment & Plan Assessment & Plan (1) Left hip pain: Code(s): M25.552 - Pain in left hip Category: Medical Plan Yan presents with intermittent left hip pain most likely due to muscle strain and tightness. At this point the patient's symptoms continue to improve with his physical therapy program. Activity modifications were discussed at length with the patient. He will follow up with me on an as-needed basis should his symptoms worsen in any way. Feel free to call me at any time should questions regarding his orthopedic management arise. I spent 21 minutes in reviewing the patient's records and imaging studies, seeing the patient and documenting in the medical record. Coding Level of Care Code Est Pt Level 3 (13343) Complex EM visit Add On G2211 Diagnoses Left hip pain M25.552
== END 2024-07-30 09:05 | disposition home or self-care (01) ==
PROVIDERS: PCP Nurse Practitioner Family; Visit Provider Orthopaedic Surgery
DX: M25.552 Pain in left hip (principal)
CPT/HCPCS: 99213

== ENCOUNTER → 2024-07-30 08:30 | Outpatient (BNVA) | payer BC, SELFPAY | PROVIDERS: PCP Nurse Practitioner Family; Visit Provider Orthopaedic Surgery ==

== ENCOUNTER 2024-10-27 09:43 | Outpatient (AMB) | payer BC, SELFPAY ==
[2024-10-27 09:49] VITALS: BP 124/70; PULSE 82; BMI 27.4
--- NOTE | 2024-10-27 09:49 | MHC.OFFVIS ---
Vital Signs 10/27/24 09:49 Height 5 ft 11 in Weight 196 lb 3.382 oz BMI 27.4 BP 124/70 Blood Pressure Location Lt brachial Position Sitting Pulse 82 Pulse Source Monitor Intake Visit Reasons: 1 yr f/up Business Solutions Consultant Required: No Accompanied by: Self / Same As Patient Allergies No Known Allergies [No Known Allergies*] Allergy (Verified 07/30/24 08:39) Medication List - Last Reconciled 10/27/24 by Finn Callejas MD aspirin (Adult Low Dose Aspirin) 81 mg PO DAILY lisinopril 10 mg PO DAILY metoprolol succinate ER 100 mg PO DAILY mirtazapine 15 mg PO DAILY HPI Comments Details: Yan returns for follow-up. History of mild coronary disease and mild nonischemic cardiomyopathy possibly related to hypertension. Overall, he states he feels good. He has lost almost 20 lb in weight and feels good. No cardiac symptoms whatsoever. Last time, we discussed about statins but he would rather not take it. He wants to do cholesterol management more so from lifestyle then statins. [facility] Medical History (Updated 06/11/24 @ 17:58 by Nicolas Reyes MD) Atherosclerotic cardiovascular disease Essential hypertension Nonischemic cardiomyopathy Surgical History No pertinent past surgical history Family History Father Hypertension Mother Hypertension Social History Alcohol intake: current Alcohol intake frequency: a few times a month Alcohol type: beer Patient Tobacco Use Status: Never used Tobacco Review of Systems Const Denies chills, Denies fatigue, Denies fever(s), Denies weight gain and Denies weight loss ENT Denies dizziness Card Denies chest pain, Denies leg edema, Denies lightheadedness, Denies palpitations, Denies dyspnea on exertion, Denies orthopnea and Denies other Resp Denies cough and Denies dyspnea on exertion GI Denies hematochezia and Denies change in stool character Musc Denies abnormal gait, Denies muscle weakness, Denies numbness, Denies radiating pain into limb and Denies tingling Neuro Denies abnormal gait, Denies dizziness, Denies numbness and Denies tingling Endo Denies fatigue and Denies palpitations Physical Exam Vital Signs: Last Vital Signs Pulse 82 10/27/24 09:49 BP 124/70 10/27/24 09:49 BMI result Body Mass Index 27.4 Const General: comfortable and no acute distress Orientation/consciousness: patient oriented x3 HEENT Other: Unremarkable Head: Yes normal to inspection Neck Neck: Yes normal visual inspection Chest Chest palpation & inspection: normal inspection of the chest Resp Auscultation: clear to auscultation bilaterally Cardio Palpation: normal PMI Heart sounds: S1 normal heart sound present, S2 normal heart sound present, no gallops, no murmurs and no rubs GI Palpation (GI): Soft to palpation Back/Spine/Pelvis Other: unremarkable Skin General skin exam: no rashes or lesions noted Neuro General: patient oriented x3 Extrem General: Yes normal to inspection Psych Mental Status: mental status grossly normal Office Procedures EKG Details: EKG with underlying sinus rhythm at 82/Min; left anterior fascicular block; nonspecific ST-T changes; [place] [id number], Complete Assessment & Plan Assessment & Plan (1) Atherosclerotic cardiovascular disease: Code(s): I25.10 - Atherosclerotic heart disease of [place] coronary artery without angina pectoris Category: Medical (2) Essential hypertension: Code(s): I10 - Essential (primary) hypertension Category: Medical (3) Nonischemic cardiomyopathy: Code(s): I42.8 - Other cardiomyopathies Category: Medical Plan LVEF on a prior echocardiogram was 40-50%, but the last study shows LVEF 57%. Stress MIBI in the past was unremarkable. Coronary CTA shows mild disease overall. Nothing obstructive. Ostial left main-30%. Mid LAD-25%. distal LAD-40%. Distal RCA 40%. Nothing significant on FFR. Borderline ascending aortic size at 3.8 cm. Overall, mainly risk factor modification. He is already losing weight and that is excellent. Blood pressure is also better. For medications, he is on beta-blockers and lisinopril. We have discussed about statins in the past as well as today but he would rather not take it. He prefers to deal with cholesterol through lifestyle measures only. Last available LDL 96 mg/dL. Triglycerides 131 mg/dL. Follow-up in 1 year. Total time spent including review of data, counseling, documentation, coordination of care-32 minutes. Coding Level of Care Code Est Pt Level 4 (66053) Diagnoses Atherosclerotic cardiovascular disease I25.10 Essential hypertension I10 Nonischemic cardiomyopathy I42.8 CPT Codes EKG - CPT: 42941-[id number], Complete ([id number])
== END 2024-10-27 10:25 | disposition home or self-care (01) ==
PROVIDERS: PCP Nurse Practitioner Family; Visit Provider Internal Medicine
DX: I25.10 Atherosclerotic heart disease of native coronary artery without angina pectoris (principal); I10 Essential (primary) hypertension; I42.8 Other cardiomyopathies
CPT/HCPCS: 93010; 99214

== ENCOUNTER → 2024-10-27 09:43 | Outpatient (BNVA) | payer BC, SELFPAY | PROVIDERS: PCP Nurse Practitioner Family; Visit Provider Internal Medicine | DX: I25.10 Atherosclerotic heart disease of native coronary artery without angina pectoris (principal); I10 Essential (primary) hypertension; I42.8 Other cardiomyopathies; Z79.899 Other long term (current) drug therapy | CPT/HCPCS: 93005 ==